=== PATIENT | female | born 1965 | race Caucasian/White ===

== ENCOUNTER 2023-08-25 10:01 | Outpatient (CLI) | payer MEDICAID, MEDICARE ==
[2023-08-25] VITALS (12 sets, daily range): BP systolic 113–164; BP diastolic 74–102; PULSE 48–68
[~2023-08-25 10:01] MED LIST: BENA1TAB19 PO; ESCI-8 PO; METO5TAB85 PO; ONDA8TAB13 PO; PANT-47 PO; POTA10CA85 PO
== END 2023-08-25 23:59 | disposition home or self-care (01) ==
LOC: CARD DIAG 10:01
PROVIDERS: ATTEND Internal Medicine Interventional Cardiology
DX: R42 Dizziness and giddiness (principal)
CPT/HCPCS: 93660